=== PATIENT | female | born 1995 | race Asian ===

== ENCOUNTER 2019-11-08 08:00 | Outpatient (CLI) | payer MEDICAID | END 2019-11-08 23:59 | disposition home or self-care (01) | LOC: LAB.S 08:00 | PROVIDERS: ATTEND Registered Nurse | DX: Z00.00 Encounter for general adult medical examination without abnormal findings (principal) | CPT/HCPCS: 36415; 81599; 86480; 86704; 86787 ==

== ENCOUNTER 2019-12-22 14:12 | Outpatient (CLI) | payer MEDICAID | END 2019-12-22 14:13 | disposition home or self-care (01) | LOC: LAB.S 14:12 | PROVIDERS: ATTEND Registered Nurse | DX: Z00.00 Encounter for general adult medical examination without abnormal findings (principal) | CPT/HCPCS: 36415; 86707 ==

== ENCOUNTER 2020-02-29 15:01 | Outpatient (CLI) | payer MEDICAID | END 2020-02-29 15:02 | disposition home or self-care (01) | LOC: LAB.S 15:01 | PROVIDERS: ATTEND Registered Nurse | DX: Z00.00 Encounter for general adult medical examination without abnormal findings (principal) | CPT/HCPCS: 36415; 86317; 86707 ==

== ENCOUNTER 2020-05-10 08:00 | Outpatient (CLI) | payer MEDICAID | END 2020-05-10 23:59 | disposition home or self-care (01) | LOC: LAB.R 08:00 | PROVIDERS: ATTEND Nurse Practitioner Obstetrics & Gynecology | DX: R35.0 Frequency of micturition (principal) | CPT/HCPCS: 87086 ==